=== PATIENT | male | born 1945 | race Caucasian/White ===

== ENCOUNTER 2023-11-02 19:41 | Emergency (ER) | payer BC, OTHER ==
[~2023-11-02] VITALS: Ht 177.8 cm; Wt 104.3 kg
[~2023-11-02 19:41] MED LIST: SULF1TAB48 PO
[2023-11-02 19:52] VITALS: BP_SYST 172; PULSE 83; RESP 20; TEMP 98.8; O2SAT 98
[2023-11-02] MEDS: ONDANSETRON 4 MG ODT TAB PO ONE (20:02)
[2023-11-02] MEDS: PANTOPRAZOLE SODIUM 40 MG TAB PO ONE (20:02)
[2023-11-02 20:13] LABS: BASOPHILS # (AUTO) 0.1 K/uL (0.0-0.2); BASOPHILS % (AUTO) 0.6 % (0.0-2.0); EOSINOPHILS % (AUTO) 0.3 % (0.0-4.0); HEMATOCRIT 41.5 % (36-54); HEMOGLOBIN 14.1 g/dL (14.0-18.0); LYMPHOCYTES % (AUTO) 16.2 % (20.5-51.5); MEAN CORPUSCULAR HEMOGLOBIN 30 pg (27-31); MEAN CORPUSCULAR HGB CONC 34 % (32-36); MEAN CORPUSCULAR VOLUME 90 fL (79.0-98.0); NEUTROPHILS # (AUTO) 8.4 K/uL (1.8-7.7); NEUTROPHILS % (AUTO) 66.9 % (40.0-70.0); PLATELET COUNT (AUTO) 266 K/uL (130-430); RED BLOOD CELL COUNT(AUTO) 4.62 MIL/uL (4.2-6.2); RED CELL DISTRIBUTION WIDTH 13.4 % (9.0-15.0); WHITE BLOOD COUNT (AUTO) 12.6 K/uL (4.8-10.8)
[2023-11-02 20:27] LABS: ANION GAP 7 (5-15); CALCIUM 9.9 mg/dL (8.4-11.0); CARBON DIOXIDE 29 mmol/L (23-29); CHLORIDE 103 mmol/L (98-107); CREATININE 1.04 mg/dL (0.55-1.30); GLUCOSE 110 mg/dL (74-106); POTASSIUM 4.4 mmol/L (3.5-5.1); SODIUM SERUM 139 mmol/L (136-145); UREA NITROGEN, BLOOD 17 mg/dL (8-21)
[2023-11-02 20:58] LABS: ALANINE AMINOTRANSFERASE 29 U/L (12-78); ALBUMIN 3.7 g/dL (3.4-4.8); AMYLASE 54 U/L (0-100); ASPARTATE AMINOTRANSFERASE 22 U/L (10-37); BILIRUBIN,DIRECT 0.2 mg/dL (0.0-0.3); LACTATE DEHYDROGENASE 230 U/L (85-227); LIPASE 36 U/L (16-77); TOTAL BILIRUBIN 0.9 mg/dL (0.0-1.0); TOTAL PROTEIN, SERUM 7.2 g/dL (6.4-8.3)
[2023-11-02 20:59] LABS: BILIRUBIN,URINE NEGATIVE (NEGATIVE); BLOOD, URINE NEGATIVE (NEGATIVE); CLARITY/URINE CLEAR (CLEAR); COLOR,URINE YELLOW (YELLOW); GLUCOSE,URINE NEGATIVE (NEGATIVE); KETONES,URINE NEGATIVE (NEGATIVE); LEUKOCYTE ESTERASE ,URINE NEGATIVE (NEGATIVE); NITRITE, URINE NEGATIVE (NEGATIVE); PROTEIN URINE NEGATIVE (NEGATIVE); UROBILINOGEN,URINE 0.2 (0.2-1.0)
[2023-11-02] MEDS: NACL 0.9% 1,000 ML IV ONE (21:44)
[2023-11-02] MEDS: METOCLOPRAMIDE HCL 10 MG/2 ML VIAL IVP ONE (21:48)
[2023-11-02] MEDS: DIPHENHYDRAMINE INJ 50 MG/ML VIAL IVP ONE (22:48)
[2023-11-02] MEDS: MORPHINE 2 MG/ML INJ. SYRINGE IVP ONE (22:49)
[2023-11-02] MEDS ORDERED: ACET-1 PO (23:19)
[2023-11-02 23:42] VITALS: BP_SYST 136; PULSE 69; RESP 16; TEMP 98.1; O2SAT 98
== END 2023-11-02 23:42 | disposition home or self-care, planned readmission (81) ==
LOC: SED 19:41
DX: K21.9 Gastro-esophageal reflux disease without esophagitis (principal); T39.1X5A Adverse effect of 4-Aminophenol derivatives, initial encounter; R07.9 Chest pain, unspecified; R11.0 Nausea; I10 Essential (primary) hypertension; Z79.899 Other long term (current) drug therapy; Y92.89 Other specified places as the place of occurrence of the external cause
CPT/HCPCS: 99285; 74176; 96374; 96375; 96361; 80076; 80048; 81001; 82150; 83615; 83690; 85025; 84484; 36415; 83605; 81003; 82397; Q0162; J1200; J2765; J2270; J7030

== ENCOUNTER 2024-06-16 10:34 | Emergency (ER) | payer BC ==
[~2024-06-16] VITALS: Ht 188 cm; Wt 77.1 kg
[~2024-06-16 10:34] MED LIST changes: +ACET-1 PO
[2024-06-16 10:45] VITALS: BP_SYST 160; PULSE 77; RESP 18; TEMP 97.3; O2SAT 98
[2024-06-16] MEDS ORDERED: ONDANSETRON 4 MG ODT TAB PO ONE (11:00)
[2024-06-16] MEDS: ONDANSETRON HCL 4 MG/2 ML VIAL IVP ONE (11:24)
[2024-06-16 11:26] LABS: BASOPHILS # (AUTO) 0.1 K/uL (0.0-0.2); BASOPHILS % (AUTO) 0.6 % (0.0-2.0); EOSINOPHILS % (AUTO) 0.3 % (0.0-4.0); HEMATOCRIT 42.8 % (36-54); HEMOGLOBIN 14.1 g/dL (14.0-18.0); LYMPHOCYTES # (AUTO) 1.6 K/uL (1.0-5.5); LYMPHOCYTES % (AUTO) 13.9 % (20.5-51.5); MEAN CORPUSCULAR HEMOGLOBIN 30 pg (27-31); MEAN CORPUSCULAR HGB CONC 33 % (32-36); MEAN CORPUSCULAR VOLUME 91 fL (79.0-98.0); MONOCYTES # (AUTO) 0.9 K/uL (0.0-1.0); MONOCYTES % (AUTO) 7.7 % (1.7-9.3); NEUTROPHILS # (AUTO) 8.9 K/uL (1.8-7.7); NEUTROPHILS % (AUTO) 77.5 % (40.0-70.0); PLATELET COUNT (AUTO) 281 K/uL (130-430); RED BLOOD CELL COUNT(AUTO) 4.73 MIL/uL (4.2-6.2); RED CELL DISTRIBUTION WIDTH 13.6 % (9.0-15.0); WHITE BLOOD COUNT (AUTO) 11.6 K/uL (4.8-10.8)
[2024-06-16] MEDS: NACL 0.9% 1,000 ML IV ONE (11:36)
[2024-06-16 11:39] LABS: ALANINE AMINOTRANSFERASE 27 U/L (12-78); ANION GAP 8 (5-15); ASPARTATE AMINOTRANSFERASE 23 U/L (10-37); BILIRUBIN,DIRECT 0.2 mg/dL (0.0-0.3); CALCIUM 9.7 mg/dL (8.4-11.0); CARBON DIOXIDE 29 mmol/L (23-29); CHLORIDE 103 mmol/L (98-107); CREATININE 0.98 mg/dL (0.55-1.30); GLUCOSE 103 mg/dL (74-106); LIPASE 44 U/L (16-77); POTASSIUM 4.5 mmol/L (3.5-5.1); SODIUM SERUM 140 mmol/L (136-145); TOTAL BILIRUBIN 0.6 mg/dL (0.0-1.0); TOTAL PROTEIN, SERUM 7.3 g/dL (6.4-8.3); UREA NITROGEN, BLOOD 17 mg/dL (8-21)
[2024-06-16] MEDS ORDERED: ONDA8TAB60 PO (12:02)
[2024-06-16 12:14] VITALS: BP_SYST 160; PULSE 77; RESP 18; TEMP 97.3; O2SAT 98
== END 2024-06-16 12:26 | disposition home or self-care (01) ==
LOC: SED 10:34
DX: R11.2 Nausea with vomiting, unspecified (principal); R42 Dizziness and giddiness; I10 Essential (primary) hypertension; Z88.0 Allergy status to penicillin; Z88.1 Allergy status to other antibiotic agents; Z88.2 Allergy status to sulfonamides; Z96.659 Presence of unspecified artificial knee joint
CPT/HCPCS: 99283; 96374; 96361; 80076; 80048; 83690; 85025; 36415; J2405; J7030